=== PATIENT | male | born 1950 | race Caucasian/White ===

== ENCOUNTER → 2016-07-02 | Outpatient (CLI) | payer OTHER ==
[~2016-07-02] MED LIST: ADULT LOW DOSE81 MG PO; LISINOPRIL40 MG PO
--- NOTE | 2016-07-02 09:40 | RADIOLOGY REPORT PS360 ---
KNEE-4 OR 5 VIEWS-RT History: Right knee pain Comparison: None Technique: Weightbearing AP, lateral and Rubalcava views were performed as well as oblique. Findings: There is moderate decrease in the joint space medially consistent with osteoarthritic change. Lateral joint space is unremarkable. Minimal osteophytes noted at the posterior patella. No fracture or dislocation. No lytic or blastic change. Impression: Moderate osteoarthritic change medial compartment
--- NOTE | 2016-07-02 09:41 | RADIOLOGY REPORT PS360 ---
KNEE-4 OR 5 VIEWS-LT History: Left knee pain Comparison: None Technique: Weightbearing AP, lateral and Rubalcava views were performed as well as oblique. Findings: There is mild decrease in joint space medially. Otherwise unremarkable. No fracture or dislocation. No lytic or blastic change. Impression: Mild osteoarthritic change medial compartment
== END ==
LOC: RAD 08:44
DX: M25.561 Pain in right knee (principal); M25.562 Pain in left knee